=== PATIENT | male | born 1940 | race Caucasian/White ===

== ENCOUNTER 2024-09-03 18:46 | Inpatient (IN) | payer MEDICARE, SELFPAY ==
[2024-09-03] VITALS (14 sets, daily range): BP systolic 90–132; BP diastolic 56–106; BMI 37.8
[2024-09-03 14:20] LABS: % Basophils 0.2 % (0-2); % Immature Granulocytes 0.4 % (0-0.5); % Lymphocytes 2.9 % (20.5-51.1); % Monocytes 5.1 % (1.7-9.3); % Neutrophils 91.4 % (42.2-75.2); Absolute Immature Granulocytes 0.1 10^3/uL (0-0.05); Absolute Lymphocytes 0.4 10^3/uL (1.2-3.4); Absolute Monocytes 0.6 10^3/uL (0.1-0.6); Absolute Neutrophils 11.2 10^3/uL (1.4-6.5); Hematocrit 40.1 % (39.0-52.0); Hemoglobin 13.1 g/dL (13.0-18.0); Mean Corp Hgb Conc. 32.7 g/dL (33.0-37.0); Mean Corpuscular Hgb 32.8 pg (27.0-31.0); Mean Corpuscular Volume 100.5 fL (80.0-94.0); Mean Platelet Volume 9.6 fL (7.4-10.4); Nucleated Red Blood Cells % 0 % (-); Platelet Count 231 10^3/uL (130-400); Red Blood Cell Count 3.99 10^6/uL (4.70-6.10); Red Cell Dist. Width 17.8 % (11.5-14.5); White Blood Cell Count 12.3 10^3/uL (4.8-10.8)
[2024-09-03 14:28] LABS: ALT (SGPT) 29 U/L (0-50); AST (SGOT) 49 U/L (17-59); Albumin 3.7 g/dl (3.5-5.0); Alkaline Phosphatase 161 U/L (38-126); Blood Urea Nitrogen 30 mg/dl (9-20); Calcium 8.2 mg/dl (8.4-10.2); Carbon Dioxide 31 mmol/L (22-30); Chloride 97 mmol/L (98-107); Creatine Phosphokinase 224 U/L (55-170); Estimated Creatinine Clearance 49 ml/min; Glucose 128 mg/dl (70-99); Potassium 4.8 mmol/L (3.5-5.1); Sodium 137 mmol/L (135-145); Total Bilirubin 3.5 mg/dl (0.2-1.3); Total Protein 6.3 g/dl (6.3-8.2); eGFR 49.56
[2024-09-03 14:37] LABS: NT-proBNP 2810 pg/ml
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
[2024-09-03] MEDS: DUONEB 3 ML INH (16:29)
[2024-09-03] MEDS: LASIX 40 MG IV (16:31)
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
[2024-09-03 17:33] LABS: Lactic Acid 1.5 mmol/L (0.7-2.0)
[2024-09-03 17:50] LABS: COVID-19 Antigen Negative (Negative)
[2024-09-03 18:35] LABS: Urine Albumin Negative (Neg - Trace); Urine Bilirubin Negative (Negative); Urine Character Clear (Clear); Urine Color Yellow; Urine Glucose Negative (Negative); Urine Ketone Negative (Negative); Urine Leukocyte Negative (Negative); Urine Nitrite Negative (Negative); Urine Occult Blood 3+ (Negative); Urine Specific Gravity 1.015 (<1.030); Urine Urobilinogen Negative (Neg - 1+)
[2024-09-03 19:12] LABS: Procalcitonin 0.08 ng/ml (0.0-0.25)
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
[2024-09-03] MEDS: ZOSYN 50 IV (19:40)
[2024-09-03] MEDS: ADACEL 0.5 ML IM (20:00)
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
[2024-09-03 20:26] LABS: Urine Red Blood Cell 70-80 /HPF (0-2); Urine White Cell 0-2 /HPF (0-5)
[2024-09-03] MEDS: TYLENOL 650 MG PO (22:31)
[2024-09-03] MEDS: ZOLOFT 150 MG PO (22:41)
[2024-09-03] MEDS: HEPARIN 5000 UNITS SC (22:43)
[2024-09-04] VITALS (17 sets, daily range): BP systolic 83–126; BP diastolic 49–83; BMI 36.3
[2024-09-04] MEDS: ROXICODONE 5 MG PO ×4 (00:57→20:05)
[2024-09-04] MEDS: ZOSYN 50 IV ×4 (02:08→20:06)
[2024-09-04 05:22] LABS: % Basophils 0.4 % (0-2); % Eosinophils 0.8 % (0-6); % Immature Granulocytes 0.4 % (0-0.5); % Lymphocytes 6.1 % (20.5-51.1); % Monocytes 12.2 % (1.7-9.3); % Neutrophils 80.1 % (42.2-75.2); Absolute Eosinophils 0.1 10^3/uL (0-0.7); Absolute Lymphocytes 0.5 10^3/uL (1.2-3.4); Absolute Neutrophils 6.7 10^3/uL (1.4-6.5); Hematocrit 34.7 % (39.0-52.0); Hemoglobin 11.1 g/dL (13.0-18.0); Mean Corpuscular Hgb 32.2 pg (27.0-31.0); Mean Corpuscular Volume 100.6 fL (80.0-94.0); Mean Platelet Volume 9.5 fL (7.4-10.4); Nucleated Red Blood Cells % 0 % (-); Platelet Count 212 10^3/uL (130-400); Red Blood Cell Count 3.45 10^6/uL (4.70-6.10); White Blood Cell Count 8.4 10^3/uL (4.8-10.8)
[2024-09-04 05:39] LABS: ALT (SGPT) 25 U/L (0-50); AST (SGOT) 46 U/L (17-59); Albumin 2.8 g/dl (3.5-5.0); Alkaline Phosphatase 123 U/L (38-126); Blood Urea Nitrogen 29 mg/dl (9-20); Calcium 7.8 mg/dl (8.4-10.2); Carbon Dioxide 28 mmol/L (22-30); Chloride 97 mmol/L (98-107); Estimated Creatinine Clearance 53 ml/min; Glucose 100 mg/dl (70-99); HDL Cholesterol 13 mg/dl; LDL Cholesterol, Calculated 31 mg/dl; Magnesium 1.8 mg/dl (1.6-2.3); Potassium 3.9 mmol/L (3.5-5.1); Sodium 135 mmol/L (135-145); Total Bilirubin 3.2 mg/dl (0.2-1.3); Total Cholesterol 59 mg/dl (50-199); Total Protein 5.1 g/dl (6.3-8.2); Triglyceride 78 mg/dl (10-149); Very Low Density Lipoprotein 15 mg/dl (0-30); eGFR 54.17
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
[2024-09-04] MEDS: HEPARIN 5000 UNITS SC (09:49)
[2024-09-04] MEDS: LASIX 40 MG IV (09:50)
[2024-09-04] MEDS: ASPIR LOW (ENTERIC COATED) 81 MG PO (09:50)
[2024-09-04] MEDS: THERAGRAN PO (13:16)
--- NOTE | 2024-09-04 15:23 | PTOTSP ---
SPEECH THERAPY SWALLOW EVALUATION:
Patient exhibits clinical signs of oropharyngeal dysphagia, likely chronic related to COPD and acutely exacerbated by sepsis and acute CHF. Patient is at high risk for aspiration and related complications due to tenuous respiratory/pulmonary status
and impulsivity. Recommend IDDSI Level 5 Minced and Moist diet, thin liquids via single sips only. Medications whole in puree. Aspiration/COPD precautions including: Upright positioning; Small single sips/bites; Slow rate of intake; Take breaks
during meals; Do not eat when short of breath; Monitor for signs of aspiration; D/c oral diet if any decline in mental/respiratory status. Consider VSE if concern for aspiration. ST to follow, determine indication for VSE as appropriate, assess diet
tolerance and modify as appropriate, and provide continued education regarding aspiration risks and precautions.
RECOMMEND:
1) IDDSI Level 5 Minced and Moist diet, thin liquids via single sips only
2) Medications whole in puree
3) Aspiration/COPD precautions including: Upright positioning; Small single sips/bites; Slow rate of intake; Take breaks during meals; Do not eat when short of breath; Monitor for signs of aspiration; D/c oral diet if any decline in
mental/respiratory status
4) Consider VSE if concern for aspiration
5) Oral care 3x/day to reduce risk for nosocomial infection
6) ST to follow
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
[2024-09-04] MEDS: LIPITOR 20 MG PO (19:12)
[2024-09-04] MEDS: TOPROL XL 25 MG PO (19:12)
[2024-09-04] MEDS: ZOLOFT 150 MG PO (20:05)
[2024-09-04] MEDS: ELIQUIS 5 MG PO (20:05)
[2024-09-05] MEDS: ZOSYN 50 IV ×4 (01:23→20:32)
[2024-09-05 03:28] VITALS: BP 114/81
[2024-09-05] MEDS: DUONEB 3 ML INH (04:23)
[2024-09-05 05:54] VITALS: BMI 36.4
[2024-09-05] MEDS: ROXICODONE 5 MG PO ×3 (06:25→22:40)
[2024-09-05 07:00] VITALS: BP 116/64
[2024-09-05 07:54] LABS: % Basophils 0.3 % (0-2); % Eosinophils 1.6 % (0-6); % Immature Granulocytes 0.3 % (0-0.5); % Lymphocytes 4.5 % (20.5-51.1); % Monocytes 11.3 % (1.7-9.3); Absolute Eosinophils 0.2 10^3/uL (0-0.7); Absolute Lymphocytes 0.4 10^3/uL (1.2-3.4); Absolute Monocytes 1.1 10^3/uL (0.1-0.6); Absolute Neutrophils 7.8 10^3/uL (1.4-6.5); Hematocrit 36.1 % (39.0-52.0); Hemoglobin 11.3 g/dL (13.0-18.0); Mean Corp Hgb Conc. 31.3 g/dL (33.0-37.0); Mean Corpuscular Hgb 31.7 pg (27.0-31.0); Mean Corpuscular Volume 101.4 fL (80.0-94.0); Nucleated Red Blood Cells % 0 % (-); Platelet Count 211 10^3/uL (130-400); Red Blood Cell Count 3.56 10^6/uL (4.70-6.10); Red Cell Dist. Width 17.8 % (11.5-14.5); White Blood Cell Count 9.5 10^3/uL (4.8-10.8)
[2024-09-05 08:07] LABS: ALT (SGPT) 29 U/L (0-50); AST (SGOT) 44 U/L (17-59); Albumin 3.3 g/dl (3.5-5.0); Alkaline Phosphatase 138 U/L (38-126); Blood Urea Nitrogen 33 mg/dl (9-20); Calcium 8.1 mg/dl (8.4-10.2); Carbon Dioxide 34 mmol/L (22-30); Chloride 93 mmol/L (98-107); Estimated Creatinine Clearance 40 ml/min; Glucose 135 mg/dl (70-99); Magnesium 1.9 mg/dl (1.6-2.3); Potassium 3.8 mmol/L (3.5-5.1); Sodium 135 mmol/L (135-145); Total Bilirubin 2.6 mg/dl (0.2-1.3); Total Protein 5.9 g/dl (6.3-8.2); eGFR 39.26
[2024-09-05] MEDS: ASPIR LOW (ENTERIC COATED) 81 MG PO (10:09)
[2024-09-05] MEDS: TOPROL XL 25 MG PO (10:09)
[2024-09-05] MEDS: THERAGRAN 1 TABLET PO (10:09)
[2024-09-05] MEDS: ELIQUIS 5 MG PO ×2 (10:09→20:31)
[2024-09-05 11:00] VITALS: BP 102/68
[2024-09-05] MEDS: LASIX 40 MG IV (11:43)
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
[2024-09-05 15:00] VITALS: BP 91/57
[2024-09-05] MEDS: DESENEX/MITRAZOL/ZEASORB 1 APPLIC TOPICAL ×2 (15:58→20:32)
[2024-09-05] MEDS: LIPITOR 20 MG PO (18:40)
[2024-09-05 19:30] VITALS: BP 112/73
[2024-09-05] MEDS: ZOLOFT 150 MG PO (22:37)
[2024-09-05 23:00] VITALS: BP 95/58
[2024-09-06] MEDS: ZOSYN 50 IV ×4 (02:05→23:25)
[2024-09-06 03:00] VITALS: BP 107/71
[2024-09-06 06:00] VITALS: BMI 36.4
[2024-09-06 07:16] VITALS: BP 89/56
[2024-09-06 07:46] LABS: % Basophils 0.3 % (0-2); % Eosinophils 2.2 % (0-6); % Immature Granulocytes 0.6 % (0-0.5); % Lymphocytes 7.2 % (20.5-51.1); % Monocytes 12.7 % (1.7-9.3); Absolute Eosinophils 0.2 10^3/uL (0-0.7); Absolute Immature Granulocytes 0.1 10^3/uL (0-0.05); Absolute Lymphocytes 0.7 10^3/uL (1.2-3.4); Absolute Monocytes 1.2 10^3/uL (0.1-0.6); Absolute Neutrophils 7.4 10^3/uL (1.4-6.5); Hematocrit 35.4 % (39.0-52.0); Hemoglobin 11.2 g/dL (13.0-18.0); Mean Corp Hgb Conc. 31.6 g/dL (33.0-37.0); Mean Corpuscular Hgb 31.9 pg (27.0-31.0); Mean Corpuscular Volume 100.9 fL (80.0-94.0); Mean Platelet Volume 9.5 fL (7.4-10.4); Nucleated Red Blood Cells % 0 % (-); Platelet Count 210 10^3/uL (130-400); Red Blood Cell Count 3.51 10^6/uL (4.70-6.10); Red Cell Dist. Width 18.1 % (11.5-14.5); White Blood Cell Count 9.6 10^3/uL (4.8-10.8)
[2024-09-06 08:30] LABS: ALT (SGPT) 69 U/L (0-50); AST (SGOT) 109 U/L (17-59); Albumin 3.2 g/dl (3.5-5.0); Alkaline Phosphatase 116 U/L (38-126); Blood Urea Nitrogen 43 mg/dl (9-20); Calcium 7.9 mg/dl (8.4-10.2); Carbon Dioxide 31 mmol/L (22-30); Chloride 92 mmol/L (98-107); Estimated Creatinine Clearance 24 ml/min; Glucose 127 mg/dl (70-99); Magnesium 2.1 mg/dl (1.6-2.3); Potassium 4.3 mmol/L (3.5-5.1); Sodium 133 mmol/L (135-145); Total Bilirubin 3.4 mg/dl (0.2-1.3); Total Protein 5.6 g/dl (6.3-8.2); eGFR 21.57
[2024-09-06] MEDS: DESENEX/MITRAZOL/ZEASORB 1 APPLIC TOPICAL ×2 (09:23→21:35)
[2024-09-06] MEDS: THERAGRAN 1 TABLET PO (09:23)
[2024-09-06] MEDS: ASPIR LOW (ENTERIC COATED) 81 MG PO (09:23)
[2024-09-06] MEDS: ELIQUIS 5 MG PO (09:24)
[2024-09-06] MEDS: ROXICODONE 5 MG PO (09:35)
[2024-09-06] MEDS: TOPROL XL PO (10:10)
[2024-09-06] MEDS: LASIX IV (10:10)
--- NOTE | 2024-09-06 10:16 | RR ---
A Rapid Response was called on this patient, please see Rapid Response form.
Patient with bradycardic a-flutter 30 bpm on iv rn. Patient with labored respirations, but unresponsive to sternal rub. Rapid response called.
[2024-09-06 10:20] LABS: Glucose - Point of Care 159 mg/dl (70-99)
--- NOTE | 2024-09-06 10:38 | CM ---
Patient seen at bedside with physician, rapid response in process. CM spoke with patient family, POA in hallway and per POA patient would not want intubation. Physician spoke with patient family; Justa here. Assessment completed, Patient family
from [facility]. and here visiting. Patient lives alone in a one story home with one step down to living room. Patient has been declining but still driving and independent. No DME and PCP is Dr. Sal Kolb, pharmacy is [facility] in [place]. CM will continue
to follow for discharge planning needs.
Plan; DNR, comfort care
[2024-09-06] MEDS: MORPHINE SULFATE 1 MG IV ×3 (10:45→23:38)
--- NOTE | 2024-09-06 11:04 | W.PN.UPDATE ---
Update Note
Progress Note Update
Rapid response for abrupt change in mentation with abrupt onset bradycardia, patient became agonal, difficult to obtain blood pressure, family at bedside, they request no intervention and patient was a DNR. Conservative strategy consistent with
patient's wishes.
Patient currently agonal, suspect pulmonary embolus as possible etiology, other hemodynamic catastrophes conceivable, comfort care is appropriate, expect patient will in the near term. Discussed with family, condolences offered.
--- NOTE | 2024-09-06 11:52 | W.PN.UPDATE ---
Update Note
Progress Note Update
Remarkably, patient now awake heart rate around 100, still looks ashen but better blood pressure, denies complaints, says 'I am better'. Metoprolol, will follow, diagnosis uncertain, family still at bedside. Still will not intervene further
reassess if he remains stable.
[2024-09-06] MEDS: ATIVAN 1 MG IV (13:01)
[2024-09-06] MEDS: NSS (PRESERVATIVE FREE) 0.5 ML IV (13:02)
[2024-09-06] MEDS: FLUSH (NSS) 2 FLUSH IV (13:02)
--- NOTE | 2024-09-06 13:11 | WOUNDNOTE ---
R PLANTAR MEDIAL FOOT
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
[2024-09-06] MEDS: LIPITOR PO (17:51)
[2024-09-06 19:20] VITALS: BP 102/56
[2024-09-06] MEDS: ZOLOFT 150 MG PO (21:35)
[2024-09-06] MEDS: ELIQUIS 2.5 MG PO (21:35)
[2024-09-06 23:28] VITALS: BP 104/65
[2024-09-07] VITALS (8 sets, daily range): BP systolic 99–141; BP diastolic 64–86; PULSE 103–105; O2SAT 95–96; BMI 36.5
[2024-09-07] MEDS: MORPHINE SULFATE 1 MG IV (02:22)
[2024-09-07] MEDS: ZOSYN 50 IV ×3 (05:31→17:07)
[2024-09-07 07:04] LABS: % Basophils 0.4 % (0-2); % Eosinophils 2.8 % (0-6); % Immature Granulocytes 0.7 % (0-0.5); % Monocytes 11.7 % (1.7-9.3); % Neutrophils 77.4 % (42.2-75.2); Absolute Eosinophils 0.3 10^3/uL (0-0.7); Absolute Immature Granulocytes 0.1 10^3/uL (0-0.05); Absolute Lymphocytes 0.6 10^3/uL (1.2-3.4); Absolute Neutrophils 6.9 10^3/uL (1.4-6.5); Hematocrit 36.6 % (39.0-52.0); Hemoglobin 11.5 g/dL (13.0-18.0); Mean Corp Hgb Conc. 31.4 g/dL (33.0-37.0); Mean Corpuscular Volume 101.9 fL (80.0-94.0); Mean Platelet Volume 9.8 fL (7.4-10.4); Nucleated Red Blood Cells % 0 % (-); Platelet Count 228 10^3/uL (130-400); Red Blood Cell Count 3.59 10^6/uL (4.70-6.10); Red Cell Dist. Width 18.3 % (11.5-14.5); White Blood Cell Count 8.9 10^3/uL (4.8-10.8)
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
[2024-09-07 08:18] LABS: ALT (SGPT) 140 U/L (0-50); AST (SGOT) 186 U/L (17-59); Albumin 3.4 g/dl (3.5-5.0); Alkaline Phosphatase 122 U/L (38-126); Blood Urea Nitrogen 51 mg/dl (9-20); Calcium 8.2 mg/dl (8.4-10.2); Carbon Dioxide 31 mmol/L (22-30); Chloride 91 mmol/L (98-107); Estimated Creatinine Clearance 17 ml/min; Glucose 121 mg/dl (70-99); Potassium 4.3 mmol/L (3.5-5.1); Sodium 134 mmol/L (135-145); Total Bilirubin 2.9 mg/dl (0.2-1.3); eGFR 14.49
[2024-09-07] MEDS: NSS 1000 IV (10:20)
[2024-09-07] MEDS: ELIQUIS 2.5 MG PO ×2 (10:21→21:15)
[2024-09-07] MEDS: ASPIR LOW (ENTERIC COATED) 81 MG PO (10:21)
[2024-09-07] MEDS: THERAGRAN 1 TABLET PO (10:21)
[2024-09-07] MEDS: DESENEX/MITRAZOL/ZEASORB 1 APPLIC TOPICAL ×2 (10:22→21:14)
--- NOTE | 2024-09-07 15:05 | CM ---
Patient seen at bedside, alert and asking questions. CM will reach out to patient family and request copy of POA documents to place on chart. Patient may benefit from PT/OT to confirm discharge planning needs. CM will continue to follow for
discharge planning needs.
Plan; SNF
[2024-09-07] MEDS: DECADRON 4 MG IV ×2 (15:25→21:15)
--- NOTE | 2024-09-07 15:36 | PTOTSP ---
ST Follow-Up
Pt currently presents with clinical signs of mild to moderate oral dysphagia. Pt is at an elevated risk for choking/aspiration due to increased respiratory demands, dependence on supplemental O2, and reduced breathing/swallowing coordination.
Recommendations:
- Upgrade diet to SOFT BITE SIZED SOLIDS and continue with THIN LIQUIDS; meds as tolerated.
- Aspiration precautions: Fully awake, alert, and upright for all PO intake; small bites/sips and slow intake; take breaks to catch breath between bites/sips.
- DATA COORDINATOR to f/u re: diet tolerance.
--- NOTE | 2024-09-07 16:23 | WOUNDNOTE ---
[facility] RN NOTE: Added Silvadene to current wound care to start tomorrow. Plan is for SNF upon discharge per CM note. Will confirm orders with hospitalist and notify nursing.
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
[2024-09-07] MEDS: LIPITOR 20 MG PO (17:06)
[2024-09-07] MEDS: DUONEB 3 ML INH (17:39)
[2024-09-07] MEDS: NSS IV (20:08)
[2024-09-07] MEDS: ZOLOFT 150 MG PO (21:15)
[2024-09-08] MEDS: ZOSYN 50 IV ×5 (01:35→23:33)
[2024-09-08] MEDS: NSS 1000 IV ×2 (03:13→15:12)
[2024-09-08 03:20] VITALS: BP 117/80
[2024-09-08] MEDS: DECADRON 4 MG IV ×3 (05:44→21:02)
[2024-09-08 06:00] VITALS: BMI 36.9
[2024-09-08 06:47] VITALS: BP 117/82
[2024-09-08 07:37] LABS: % Basophils 0.1 % (0-2); % Immature Granulocytes 0.8 % (0-0.5); % Lymphocytes 3.8 % (20.5-51.1); % Monocytes 2.1 % (1.7-9.3); % Neutrophils 93.2 % (42.2-75.2); Absolute Immature Granulocytes 0.1 10^3/uL (0-0.05); Absolute Lymphocytes 0.3 10^3/uL (1.2-3.4); Absolute Monocytes 0.2 10^3/uL (0.1-0.6); Absolute Neutrophils 6.6 10^3/uL (1.4-6.5); Hematocrit 37.2 % (39.0-52.0); Hemoglobin 12.1 g/dL (13.0-18.0); Mean Corp Hgb Conc. 32.5 g/dL (33.0-37.0); Mean Corpuscular Hgb 32.7 pg (27.0-31.0); Mean Corpuscular Volume 100.5 fL (80.0-94.0); Mean Platelet Volume 9.8 fL (7.4-10.4); Nucleated Red Blood Cells % 0 % (-); Platelet Count 238 10^3/uL (130-400); Red Cell Dist. Width 18.3 % (11.5-14.5); White Blood Cell Count 7.1 10^3/uL (4.8-10.8)
[2024-09-08 08:15] LABS: ALT (SGPT) 141 U/L (0-50); AST (SGOT) 136 U/L (17-59); Albumin 3.5 g/dl (3.5-5.0); Alkaline Phosphatase 121 U/L (38-126); Blood Urea Nitrogen 63 mg/dl (9-20); Calcium 8.1 mg/dl (8.4-10.2); Carbon Dioxide 26 mmol/L (22-30); Chloride 91 mmol/L (98-107); Estimated Creatinine Clearance 16 ml/min; Glucose 169 mg/dl (70-99); Potassium 4.9 mmol/L (3.5-5.1); Sodium 133 mmol/L (135-145); Total Bilirubin 2.8 mg/dl (0.2-1.3); Total Protein 6.3 g/dl (6.3-8.2); eGFR 12.54
[2024-09-08] MEDS: SILVADENE 1 APPLIC TOPICAL (09:55)
[2024-09-08] MEDS: THERAGRAN 1 TABLET PO (09:56)
[2024-09-08] MEDS: DESENEX/MITRAZOL/ZEASORB 1 APPLIC TOPICAL ×2 (09:56→21:01)
[2024-09-08] MEDS: ELIQUIS 2.5 MG PO ×2 (09:56→21:01)
[2024-09-08] MEDS: ASPIR LOW (ENTERIC COATED) 81 MG PO (09:56)
[2024-09-08 11:00] VITALS: BP 123/88
[2024-09-08] MEDS: TOPROL XL 12.5 MG PO (12:48)
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
[2024-09-08 15:00] VITALS: BP 106/71
--- NOTE | 2024-09-08 15:20 | CM ---
Patient seen at bedside with physicians and called to patient family. Patient verbal and asking about patient feet and pain. Patient contact Fern[facility] and update provided and plan is for call back with physician to provide supports. CM provided
information about SNF options and options. CM will continue to follow for discharge planning needs.
Plan; SNF
[2024-09-08] MEDS: LIPITOR 20 MG PO (17:43)
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
--- NOTE | 2024-09-08 18:27 | W.PN.UPDATE ---
Update Note
Progress Note Update
Patient's family wanted to talk about hospice. Called the patient's family and discussed about the patient's medical condition and goals of care, hospice, comfort care measures in case if they opt for hospice. Also addressed all their
concerns/questions.. Family said that they need some time to arrive at a decision and would touch base with us on Friday with the further plan.
We had a discussion for about 25 minutes.
[2024-09-08 19:25] VITALS: BP 105/69
[2024-09-08] MEDS: ZOLOFT 150 MG PO (21:01)
[2024-09-08 23:15] VITALS: BP 114/74
[2024-09-09 03:00] VITALS: BP 136/95
[2024-09-09] MEDS: ZOSYN 50 IV ×3 (05:02→17:27)
[2024-09-09] MEDS: DECADRON 4 MG IV ×3 (05:02→21:46)
[2024-09-09 05:49] VITALS: BMI 37.3
[2024-09-09 07:00] VITALS: BP 129/90
[2024-09-09 07:10] LABS: % Basophils 0.1 % (0-2); % Immature Granulocytes 0.5 % (0-0.5); % Neutrophils 91.4 % (42.2-75.2); Absolute Lymphocytes 0.3 10^3/uL (1.2-3.4); Absolute Monocytes 0.3 10^3/uL (0.1-0.6); Absolute Neutrophils 7.1 10^3/uL (1.4-6.5); Hematocrit 35.5 % (39.0-52.0); Hemoglobin 11.4 g/dL (13.0-18.0); Mean Corp Hgb Conc. 32.1 g/dL (33.0-37.0); Mean Corpuscular Hgb 32.3 pg (27.0-31.0); Mean Corpuscular Volume 100.6 fL (80.0-94.0); Mean Platelet Volume 9.8 fL (7.4-10.4); Nucleated Red Blood Cells % 0 % (-); Platelet Count 235 10^3/uL (130-400); Red Blood Cell Count 3.53 10^6/uL (4.70-6.10); Red Cell Dist. Width 18.3 % (11.5-14.5); White Blood Cell Count 7.8 10^3/uL (4.8-10.8)
[2024-09-09 08:01] LABS: Blood Urea Nitrogen 74 mg/dl (9-20); Calcium 7.7 mg/dl (8.4-10.2); Carbon Dioxide 27 mmol/L (22-30); Chloride 93 mmol/L (98-107); Estimated Creatinine Clearance 14 ml/min; Glucose 203 mg/dl (70-99); Potassium 4.9 mmol/L (3.5-5.1); Sodium 134 mmol/L (135-145); eGFR 11.02
[2024-09-09] MEDS: ELIQUIS 2.5 MG PO ×2 (08:43→21:46)
[2024-09-09] MEDS: THERAGRAN 1 TABLET PO (08:43)
[2024-09-09] MEDS: DESENEX/MITRAZOL/ZEASORB 1 APPLIC TOPICAL ×2 (08:43→21:46)
[2024-09-09] MEDS: TOPROL XL 12.5 MG PO (08:43)
[2024-09-09] MEDS: SILVADENE 1 APPLIC TOPICAL (08:43)
[2024-09-09] MEDS: ASPIR LOW (ENTERIC COATED) 81 MG PO (08:43)
[2024-09-09] MEDS: DUONEB 3 ML INH (08:51)
[2024-09-09 11:00] VITALS: BP 120/80
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
--- NOTE | 2024-09-09 14:24 | CM ---
flight engineer manager reviewed patient's chart and patient's cousins are interested in discussing hospice, Per Fernanda, her Mother Poppy and cousin to patient is BETSY she will provide POA paperwork tomorrow. Per Fernanda they are traveling from [place]
tomorrow and they are not sure what time they will arrive at and are requesting a meeting with hospice on Friday if possible. Another cousin Stefanie who is a case manager specialist will be arriving also to assist with discharge planning.
Plan; Family are hoping for a hospice meeting on Friday, they are traveling to [facility] from [place] tomorrow.
[2024-09-09 15:00] VITALS: BP 107/81
[2024-09-09] MEDS: LIPITOR 20 MG PO (17:27)
[2024-09-09 19:52] VITALS: BP 109/66
[2024-09-09] MEDS: ZOLOFT 150 MG PO (21:46)
[2024-09-09 23:41] VITALS: BP 130/94
[2024-09-10] MEDS: ZOSYN 50 IV ×4 (01:00→17:08)
[2024-09-10] MEDS: ROXICODONE 5 MG PO (02:06)
[2024-09-10 03:08] LABS: Protein/creatinine Ratio 0.9; Urine Protein 90 mg/dl; Urine Sodium 23 mmol/L (30-90)
[2024-09-10 03:30] VITALS: BP 128/83
[2024-09-10] MEDS: DECADRON 4 MG IV ×3 (05:32→21:08)
[2024-09-10 06:00] VITALS: BMI 37.5
[2024-09-10 07:00] VITALS: BP 117/84
[2024-09-10 07:57] LABS: % Basophils 0.1 % (0-2); % Immature Granulocytes 0.4 % (0-0.5); % Lymphocytes 3.1 % (20.5-51.1); % Monocytes 4.5 % (1.7-9.3); % Neutrophils 91.9 % (42.2-75.2); Absolute Lymphocytes 0.3 10^3/uL (1.2-3.4); Absolute Monocytes 0.4 10^3/uL (0.1-0.6); Absolute Neutrophils 8.3 10^3/uL (1.4-6.5); Hematocrit 38.5 % (39.0-52.0); Hemoglobin 12.6 g/dL (13.0-18.0); Mean Corp Hgb Conc. 32.7 g/dL (33.0-37.0); Mean Corpuscular Hgb 32.7 pg (27.0-31.0); Mean Platelet Volume 9.7 fL (7.4-10.4); Nucleated Red Blood Cells % 0.3 % (-); Platelet Count 256 10^3/uL (130-400); Red Blood Cell Count 3.85 10^6/uL (4.70-6.10); Red Cell Dist. Width 18.5 % (11.5-14.5); White Blood Cell Count 9.1 10^3/uL (4.8-10.8)
[2024-09-10] MEDS: THERAGRAN 1 TABLET PO (07:57)
[2024-09-10] MEDS: TOPROL XL 12.5 MG PO (07:57)
[2024-09-10] MEDS: ELIQUIS 2.5 MG PO ×2 (07:57→20:59)
[2024-09-10] MEDS: DESENEX/MITRAZOL/ZEASORB 1 APPLIC TOPICAL ×2 (07:57→20:59)
[2024-09-10] MEDS: SILVADENE 1 APPLIC TOPICAL (07:57)
[2024-09-10 08:29] LABS: Blood Urea Nitrogen 88 mg/dl (9-20); Calcium 8.2 mg/dl (8.4-10.2); Carbon Dioxide 28 mmol/L (22-30); Chloride 91 mmol/L (98-107); Estimated Creatinine Clearance 13 ml/min; Glucose 238 mg/dl (70-99); Magnesium 2.8 mg/dl (1.6-2.3); Potassium 5.1 mmol/L (3.5-5.1); Sodium 136 mmol/L (135-145); eGFR 9.81
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
--- NOTE | 2024-09-10 10:31 | CM ---
Addendum entered by Kathy Ortiz 09/10/24 17:31:
Family meeting held discussed Hospice options. family to continue to discuss options and communicate with CM tomorrow.
Original Note:
CM called to patient family they will be here later today.
[2024-09-10 11:00] VITALS: BP 119/76
--- NOTE | 2024-09-10 13:42 | W.PN.NEPH.PH ---
Today's Communication / Plan
-
Continue supportive care no acute dialysis needed at this time. considered diuretics in the next 24 hours
Assessment/Plan
-
Impression:
DEVON
Decompensated acute congestive heart failure
History of interstitial lung disease
Left 11th rib fracture following acute trauma to bilateral lower extremities
New onset atrial flutter
History of mixed hyperlipidemia
History of psoriasis
History of diabetes
History cataract
History depression
History of low SaO2
History of presumed COPD
Hypotension
Diffuse body edema including scrotal edema
3.4 cm abdominal aortic aneurysm
3.8 cm right common iliac artery aneurysm
Obesity
Plan:
DEVON:
-Likely prerenal he mediated due to hypotensive episode on 07/07/2024 and possibly due to initial contrast injury from CT on 09/03/2024
-He may now have a component of ischemic ATN
-check PVR bladder scan if greater thenn [address] granados (patient is incontinent)
-
-Urinalysis NOT consistent with GN process, no albumin
-Currently hemodynamically stable
-Zosyn is renally dosed for GFR less than 20
Creatinine and continues to increase as though no acute need for dialysis at this time
hopefully will you will see a plateau in his renal function shortly.
Current weight is 115 kg. Weights have been increasing although this is the weight he was when he arrived to the emergency room.
Will monitor for the next 24 hours likely reinitiate diuretics tomorrow one time dose.
-
-
Date of Service: September 10, 2024
CC / HPI / ROS
-
Chief Complaint:
Acute kidney injury
History of Present Illness:
acute kidney injury status post bradycardia and hypotension.
worsening renal function though hemodynamically stable
Review of Systems: .
No chest pain shortness of breath nausea vomiting
Labs
-
Labs:
WBC 9.1 10^3/uL (4.8-10.8) 09/10/24 07:11
RBC 3.85 10^6/uL (4.70-6.10) L 09/10/24 07:11
Hgb 12.6 g/dL (13.0-18.0) L 09/10/24 07:11
Hct 38.5 % (39.0-52.0) L 09/10/24 07:11
Plt Count 256 10^3/uL (130-400) 09/10/24 07:11
Sodium 136 mmol/L (135-145) 09/10/24 07:11
Potassium 5.1 mmol/L (3.5-5.1) 09/10/24 07:11
Chloride 91 mmol/L (98-107) L 09/10/24 07:11
Carbon Dioxide 28 mmol/L (22-30) 09/10/24 07:11
BUN 88 mg/dl (9-20) H 09/10/24 07:11
Creatinine 5.4 mg/dL (0.7-1.3) H* 09/10/24 07:11
eGFR 9.81 09/10/24 07:11
Glucose 238 mg/dl (70-99) H 09/10/24 07:11
Calcium 8.2 mg/dl (8.4-10.2) L 09/10/24 07:11
Tiv-I-Jtrdfgngzar Pept 2810 pg/ml 09/03/24 14:10
Albumin 3.5 g/dl (3.5-5.0) 09/08/24 06:27
Physical Exam
-
Vital Signs:
Vital Signs
Temp Pulse Resp BP Pulse Ox
97.7 F 90 20 119/76 97
09/10/24 11:00 09/10/24 11:00 09/10/24 11:00 09/10/24 11:00 09/10/24 11:00
Respiratory:: Bilateral: CTA
Lung Excursion:: Normal
Abdomen:: Soft
Bowel Sounds:: Normal
Extremity Edema:: +1: Bilateral:
--- NOTE | 2024-09-10 13:56 | PTOTSP ---
Videofluoroscopic Swallow Study
Summary: Patient presents with mild oral/pharyngeal dysphagia. No aspiration occurred. Please see patient care note for details.
Recommend:
1. IDDSI Level 5 Minced and Moist, thin liquids per patient preference
2. Medications whole in puree
3. Aspiration precautions: Upright positioning, small single sips/bites, slow rate, breaks for breathing, supervision during meals
4. Oral care 3/day
5. Brief dysphagia f/u for instruction in compensations pending GOC. (Pt/family meeting with hospice.)
[2024-09-10 15:00] VITALS: BP 133/90
[2024-09-10] MEDS: LIPITOR 20 MG PO (17:08)
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
[2024-09-10 19:43] VITALS: BP 121/76
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
[2024-09-10] MEDS: TYLENOL 650 MG PO (20:59)
[2024-09-10] MEDS: ZOLOFT 150 MG PO (20:59)
[2024-09-10 23:50] VITALS: BP 133/86
[2024-09-11] VITALS (7 sets, daily range): BP systolic 93–133; BP diastolic 60–97; BMI 37.5
[2024-09-11] MEDS: ZOSYN 50 IV ×5 (00:04→23:44)
[2024-09-11] MEDS: DECADRON 4 MG IV ×3 (05:59→22:31)
[2024-09-11 09:00] LABS: Hematocrit 38.3 % (39.0-52.0); Hemoglobin 12.6 g/dL (13.0-18.0); Mean Corp Hgb Conc. 32.9 g/dL (33.0-37.0); Mean Corpuscular Hgb 32.1 pg (27.0-31.0); Mean Corpuscular Volume 97.5 fL (80.0-94.0); Mean Platelet Volume 9.9 fL (7.4-10.4); Platelet Count 256 10^3/uL (130-400); Red Blood Cell Count 3.93 10^6/uL (4.70-6.10); Red Cell Dist. Width 17.9 % (11.5-14.5); White Blood Cell Count 8.8 10^3/uL (4.8-10.8)
[2024-09-11 09:34] LABS: Blood Urea Nitrogen 95 mg/dl (9-20); Calcium 7.8 mg/dl (8.4-10.2); Carbon Dioxide 26 mmol/L (22-30); Chloride 93 mmol/L (98-107); Estimated Creatinine Clearance 13 ml/min; Glucose 252 mg/dl (70-99); Potassium 5.3 mmol/L (3.5-5.1); Sodium 134 mmol/L (135-145); eGFR 9.59
[2024-09-11] MEDS: DESENEX/MITRAZOL/ZEASORB 1 APPLIC TOPICAL ×2 (10:17→22:31)
[2024-09-11] MEDS: ELIQUIS 2.5 MG PO ×2 (10:17→22:30)
[2024-09-11] MEDS: TOPROL XL 12.5 MG PO (10:19)
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
[2024-09-11] MEDS: SILVADENE 1 APPLIC TOPICAL (11:18)
[2024-09-11] MEDS: THERAGRAN 1 TABLET PO (11:19)
[2024-09-11] MEDS: LASIX 60 MG IV (11:34)
--- NOTE | 2024-09-11 12:43 | CM ---
Met with patient neices and reviewed options. Family requested referral to local SNF options first for rehab and then to transition to comfort or hospice as appropriate. CM will send referrals to local SNF options as family requested: [facility]. CM will send referrals via all scripts. CM will continue to follow for discharge planning needs.
Plan; SNF; hospice vs rehab
--- NOTE | 2024-09-11 14:23 | W.PN.NEPH.PH ---
Today's Communication / Plan
-
Lasix restarted
Assessment/Plan
-
Impression:
DEVON
Decompensated acute congestive heart failure
History of interstitial lung disease
Left 11th rib fracture following acute trauma to bilateral lower extremities
New onset atrial flutter
History of mixed hyperlipidemia
History of psoriasis
History of diabetes
History cataract
History depression
History of low SaO2
History of presumed COPD
Hypotension
Diffuse body edema including scrotal edema
3.4 cm abdominal aortic aneurysm
3.8 cm right common iliac artery aneurysm
Obesity
Plan:
DEVON:
-Likely prerenal he mediated due to hypotensive episode on 07/07/2024 and possibly due to initial contrast injury from CT on 09/03/2024
-He may now have a component of ischemic ATN
- decreased urine output
-
-Urinalysis NOT consistent with GN process, no albumin
-Currently hemodynamically stable
-Zosyn is renally dosed for GFR less than 20
Creatinine and continues to increase as though no acute need for dialysis at this time
Lasix restarted.
Potassium mildly elevated the setting of moderate hyperglycemia and acute kidney injury=Ordered a lower potassium diet.
A long discussion with the family about potential for dialysis although with the multiple comorbidities that likely not an option At his advanced late age
will discuss further going forward but I would recommend hospice care if we do go that direction
-
-
Date of Service: September 11, 2024
CC / HPI / ROS
-
Chief Complaint:
Acute kidney injury
History of Present Illness:
acute kidney injury status post bradycardia and hypotension.
worsening renal function though hemodynamically stable
Review of Systems: .
No chest pain shortness of breath nausea vomiting
Labs
-
Labs:
WBC 8.8 10^3/uL (4.8-10.8) 09/11/24 06:50
RBC 3.93 10^6/uL (4.70-6.10) L 09/11/24 06:50
Hgb 12.6 g/dL (13.0-18.0) L 09/11/24 06:50
Hct 38.3 % (39.0-52.0) L 09/11/24 06:50
Plt Count 256 10^3/uL (130-400) 09/11/24 06:50
Sodium 134 mmol/L (135-145) L 09/11/24 06:50
Potassium 5.3 mmol/L (3.5-5.1) H 09/11/24 06:50
Chloride 93 mmol/L (98-107) L 09/11/24 06:50
Carbon Dioxide 26 mmol/L (22-30) 09/11/24 06:50
BUN 95 mg/dl (9-20) H 09/11/24 06:50
Creatinine 5.5 mg/dL (0.7-1.3) H* 09/11/24 06:50
eGFR 9.59 09/11/24 06:50
Glucose 252 mg/dl (70-99) H 09/11/24 06:50
Calcium 7.8 mg/dl (8.4-10.2) L 09/11/24 06:50
Bsn-J-Qkaodcdtrbk Pept 2810 pg/ml 09/03/24 14:10
Albumin 3.5 g/dl (3.5-5.0) 09/08/24 06:27
Physical Exam
-
Vital Signs:
Vital Signs
Temp Pulse Resp BP Pulse Ox
98.0 F 107 24 133/97 94
09/11/24 11:43 09/11/24 11:43 09/11/24 11:43 09/11/24 11:43 09/11/24 11:43
Respiratory:: Bilateral: Coarse
Lung Excursion:: Normal
Abdomen:: Soft
Bowel Sounds:: Normal
Extremity Edema:: +1: Bilateral:
[2024-09-11] MEDS: LIPITOR 20 MG PO (18:18)
[2024-09-11] MEDS: ZOLOFT 150 MG PO (22:31)
[2024-09-12] MEDS: ROBITUSSIN 200 MG PO (02:02)
[2024-09-12] MEDS: DUONEB 3 ML INH (02:09)
[2024-09-12 03:17] VITALS: BP 109/73
[2024-09-12] MEDS: SENOKOT-S 1 TABLET PO (05:55)
[2024-09-12] MEDS: MIRALAX 17 GRAMS PO (05:55)
[2024-09-12] MEDS: DECADRON 4 MG IV ×3 (05:55→21:41)
[2024-09-12] MEDS: ZOSYN 50 IV ×3 (05:55→17:57)
[2024-09-12 06:00] VITALS: BMI 37.3
[2024-09-12 07:30] VITALS: BP 112/67
[2024-09-12 08:14] LABS: Hematocrit 38.8 % (39.0-52.0); Hemoglobin 12.6 g/dL (13.0-18.0); Mean Corp Hgb Conc. 32.5 g/dL (33.0-37.0); Mean Corpuscular Volume 98.5 fL (80.0-94.0); Mean Platelet Volume 9.8 fL (7.4-10.4); Platelet Count 251 10^3/uL (130-400); Red Blood Cell Count 3.94 10^6/uL (4.70-6.10); Red Cell Dist. Width 17.7 % (11.5-14.5); White Blood Cell Count 8.9 10^3/uL (4.8-10.8)
[2024-09-12 08:26] LABS: NT-proBNP 12500 pg/ml
[2024-09-12 08:47] LABS: ALT (SGPT) 78 U/L (0-50); AST (SGOT) 35 U/L (17-59); Albumin 3.6 g/dl (3.5-5.0); Alkaline Phosphatase 113 U/L (38-126); Blood Urea Nitrogen 101 mg/dl (9-20); Calcium 7.9 mg/dl (8.4-10.2); Carbon Dioxide 27 mmol/L (22-30); Chloride 93 mmol/L (98-107); Estimated Creatinine Clearance 12 ml/min; Glucose 265 mg/dl (70-99); Magnesium 2.8 mg/dl (1.6-2.3); Potassium 4.9 mmol/L (3.5-5.1); Sodium 135 mmol/L (135-145); Total Bilirubin 2.3 mg/dl (0.2-1.3); Total Protein 6.2 g/dl (6.3-8.2); eGFR 9.59
[2024-09-12] MEDS: TOPROL XL 12.5 MG PO (10:02)
[2024-09-12] MEDS: ELIQUIS 2.5 MG PO (10:03)
[2024-09-12] MEDS: THERAGRAN 1 TABLET PO (10:03)
[2024-09-12] MEDS: DESENEX/MITRAZOL/ZEASORB 1 APPLIC TOPICAL ×2 (10:04→21:39)
[2024-09-12] MEDS: LASIX 40 MG IV (10:04)
--- NOTE | 2024-09-12 10:33 | CM ---
CM spoke with Laverne from [facility] and she is reviewing case and will update CM about bed availability. CM will continue to follow for discharge planning needs.
Plan; SNF
[2024-09-12 11:00] VITALS: BP 114/76
[2024-09-12] MEDS: SILVADENE 1 APPLIC TOPICAL (13:18)
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
--- NOTE | 2024-09-12 14:55 | W.PN.NEPH.PH ---
Today's Communication / Plan
-
continue diuretics no changes made
Assessment/Plan
-
Impression:
DEVON
Decompensated acute congestive heart failure
History of interstitial lung disease
Left 11th rib fracture following acute trauma to bilateral lower extremities
New onset atrial flutter
History of mixed hyperlipidemia
History of psoriasis
History of diabetes
History cataract
History depression
History of low SaO2
History of presumed COPD
Hypotension
Diffuse body edema including scrotal edema
3.4 cm abdominal aortic aneurysm
3.8 cm right common iliac artery aneurysm
Obesity
Plan:
DEVON:
-Likely prerenal he mediated due to hypotensive episode on 07/07/2024 and possibly due to initial contrast injury from CT on 09/03/2024
-He may now have a component of ischemic ATN
- decreased urine output
-
-Urinalysis NOT consistent with GN process, no albumin
-Currently hemodynamically stable
-Zosyn is renally dosed for GFR less than 20
Creatinine and continues to increase as though no acute need for dialysis at this time
Lasix restarted
Potassium mildly elevated the setting of moderate hyperglycemia and acute kidney injury=Ordered a lower potassium diet.
A long discussion with the family about potential for dialysis although with the multiple comorbidities that likely not an option At his advanced late age
will discuss further going forward but I would recommend hospice care if we do go that direction
Creatinine appears to be plateauing currently at 5.5
no changes made today will continue to monitor
-
-
Date of Service: September 12, 2024
CC / HPI / ROS
-
Chief Complaint:
Acute kidney injury
History of Present Illness:
acute kidney injury status post bradycardia and hypotension.
worsening renal function though hemodynamically stable
Review of Systems: .
No chest pain shortness of breath nausea vomiting
Labs
-
Labs:
WBC 8.9 10^3/uL (4.8-10.8) 09/12/24 06:33
RBC 3.94 10^6/uL (4.70-6.10) L 09/12/24 06:33
Hgb 12.6 g/dL (13.0-18.0) L 09/12/24 06:33
Hct 38.8 % (39.0-52.0) L 09/12/24 06:33
Plt Count 251 10^3/uL (130-400) 09/12/24 06:33
Sodium 135 mmol/L (135-145) 09/12/24 06:33
Potassium 4.9 mmol/L (3.5-5.1) 09/12/24 06:33
Chloride 93 mmol/L (98-107) L 09/12/24 06:33
Carbon Dioxide 27 mmol/L (22-30) 09/12/24 06:33
BUN 101 mg/dl (9-20) H* 09/12/24 06:33
Creatinine 5.5 mg/dL (0.7-1.3) H* 09/12/24 06:33
eGFR 9.59 09/12/24 06:33
Glucose 265 mg/dl (70-99) H 09/12/24 06:33
Calcium 7.9 mg/dl (8.4-10.2) L 09/12/24 06:33
Mae-W-Speexofrieb Pept 77186 pg/ml 09/12/24 06:33
Albumin 3.6 g/dl (3.5-5.0) 09/12/24 06:33
Physical Exam
-
Vital Signs:
Vital Signs
Temp Pulse Resp BP Pulse Ox
98.4 F 75 24 112/67 92
09/12/24 07:30 09/12/24 10:02 09/12/24 07:30 09/12/24 10:02 01/19/25 07:30
Respiratory:: Bilateral: Coarse
Lung Excursion:: Normal
Abdomen:: Soft
Bowel Sounds:: Normal
Extremity Edema:: +1: Bilateral:
[2024-09-12 16:52] VITALS: BP 125/90
[2024-09-12] MEDS: LIPITOR 20 MG PO (17:57)
[2024-09-12 20:04] VITALS: BP 110/74
[2024-09-12] MEDS: ZOLOFT 150 MG PO (21:41)
[2024-09-12] MEDS: ELIQUIS PO (22:12)
--- NOTE | 2024-09-12 22:12 | PTCARENOTE ---
Reached out to House Provider, Fatoumata Nelson, asking if we should hold his evening eliquis. Per day shift, pt experienced penile bleeding with blood clots. Some blood was noted on the pad when I went in. House provider advised to bladder scan and to
hold evening eliquis. Bladder scanned at 282mL. Will continue to monitor.
[2024-09-12 22:35] VITALS: BP 115/78
[2024-09-13] VITALS (7 sets, daily range): BP systolic 105–126; BP diastolic 67–89; BMI 37.4
[2024-09-13] MEDS: DECADRON 4 MG IV ×3 (05:37→21:19)
[2024-09-13 08:13] LABS: Hematocrit 37.1 % (39.0-52.0); Hemoglobin 12.3 g/dL (13.0-18.0); Mean Corp Hgb Conc. 33.2 g/dL (33.0-37.0); Mean Corpuscular Hgb 31.5 pg (27.0-31.0); Mean Corpuscular Volume 94.9 fL (80.0-94.0); Mean Platelet Volume 9.7 fL (7.4-10.4); Platelet Count 254 10^3/uL (130-400); Red Blood Cell Count 3.91 10^6/uL (4.70-6.10); Red Cell Dist. Width 17.5 % (11.5-14.5); White Blood Cell Count 10.4 10^3/uL (4.8-10.8)
[2024-09-13] MEDS: ROXICODONE 5 MG PO (08:15)
[2024-09-13] MEDS: LASIX 40 MG IV (08:16)
[2024-09-13] MEDS: TOPROL XL 12.5 MG PO (08:16)
[2024-09-13] MEDS: THERAGRAN 1 TABLET PO (08:16)
[2024-09-13] MEDS: SILVADENE 1 APPLIC TOPICAL (08:18)
[2024-09-13] MEDS: DESENEX/MITRAZOL/ZEASORB 1 APPLIC TOPICAL ×2 (08:18→21:37)
[2024-09-13 08:52] LABS: Blood Urea Nitrogen 110 mg/dl (9-20); Calcium 8.1 mg/dl (8.4-10.2); Carbon Dioxide 23 mmol/L (22-30); Chloride 93 mmol/L (98-107); Estimated Creatinine Clearance 13 ml/min; Glucose 273 mg/dl (70-99); Potassium 4.6 mmol/L (3.5-5.1); Sodium 134 mmol/L (135-145); eGFR 10.26
--- NOTE | 2024-09-13 13:57 | W.PN.NEPH.PH ---
Today's Communication / Plan
-
Follow BMP
Assessment/Plan
-
Impression:
DEVON
Decompensated acute congestive heart failure
interstitial lung disease
Left 11th rib fracture following acute trauma to bilateral lower extremities
New onset atrial flutter
Diabetes mellitus type 2
COPD
Hypotension
Diffuse body edema including scrotal edema
3.4 cm abdominal aortic aneurysm
3.8 cm right common iliac artery aneurysm
Plan:
Follow BMP
Continue IV Lasix at this time
He still appears to be volume overloaded.
He is not a candidate for dialysis
Palliative care or hospice would be appropriate
-
-
Date of Service: September 13, 2024
CC / HPI / ROS
-
Chief Complaint:
Acute kidney injury
History of Present Illness:
DEVON/creatinine slightly better at 5.2
BUN higher at 110
Sodium low at 134
Weight stable on IV Lasix for decompensated heart failure
BP stable
Review of Systems: .
No chest pain shortness of breath
Disoriented
Labs
-
Labs:
WBC 10.4 10^3/uL (4.8-10.8) 09/13/24 07:54
RBC 3.91 10^6/uL (4.70-6.10) L 09/13/24 07:54
Hgb 12.3 g/dL (13.0-18.0) L 09/13/24 07:54
Hct 37.1 % (39.0-52.0) L 09/13/24 07:54
Plt Count 254 10^3/uL (130-400) 09/13/24 07:54
Sodium 134 mmol/L (135-145) L 09/13/24 07:54
Potassium 4.6 mmol/L (3.5-5.1) 09/13/24 07:54
Chloride 93 mmol/L (98-107) L 09/13/24 07:54
Carbon Dioxide 23 mmol/L (22-30) 09/13/24 07:54
BUN 110 mg/dl (9-20) H* 09/13/24 07:54
Creatinine 5.2 mg/dL (0.7-1.3) H* 09/13/24 07:54
eGFR 10.26 09/13/24 07:54
Glucose 273 mg/dl (70-99) H 09/13/24 07:54
Calcium 8.1 mg/dl (8.4-10.2) L 09/13/24 07:54
Arc-L-Degssvyvdkl Pept 94896 pg/ml 09/12/24 06:33
Albumin 3.6 g/dl (3.5-5.0) 09/12/24 06:33
Physical Exam
-
Vital Signs:
Vital Signs
Temp Pulse Resp BP Pulse Ox
97.3 F 108 22 114/79 98
09/13/24 11:20 09/13/24 11:20 09/13/24 11:20 09/13/24 11:20 09/13/24 11:20
Cardiovascular:: Regular rate and rhythm
Respiratory:: Bilateral: Coarse
Lung Excursion:: Normal
Abdomen:: Nontender and Soft
Bowel Sounds:: Normal
Extremity Edema:: +3: Bilateral:
[2024-09-13] MEDS: ROXICODONE 2.5 MG PO ×2 (15:04→21:21)
--- NOTE | 2024-09-13 15:14 | CM ---
CM and physician called to patient niece second POA and updated her about the options again. Daughter stating that patient does not want hospice at this time and wants to go to SNF when medically clear for rehab. CM updated her that [facility], [facility]
and [facility] had agreed to accept patient but patient was not medically stable for discharge at this time. CM will continue to follow for discharge planning needs.
Plan; SNF vs hospice.
[2024-09-13] MEDS: LIPITOR 20 MG PO (16:53)
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
[2024-09-13] MEDS: ZOLOFT 150 MG PO (21:19)
[2024-09-14] VITALS (7 sets, daily range): BP systolic 102–135; BP diastolic 67–94; PULSE 107; O2SAT 97; BMI 37.4
[2024-09-14] MEDS: TYLENOL 650 MG PO ×3 (02:25→17:17)
[2024-09-14] MEDS: ROXICODONE 2.5 MG PO ×2 (05:19→21:02)
[2024-09-14] MEDS: DECADRON 4 MG IV ×3 (05:24→21:01)
[2024-09-14] MEDS: LASIX 40 MG IV (07:46)
[2024-09-14] MEDS: ELIQUIS 2.5 MG PO ×2 (07:48→19:10)
[2024-09-14] MEDS: TOPROL XL 12.5 MG PO (07:48)
[2024-09-14] MEDS: THERAGRAN 1 TABLET PO (07:48)
[2024-09-14] MEDS: DESENEX/MITRAZOL/ZEASORB 1 APPLIC TOPICAL ×2 (07:49→19:11)
[2024-09-14] MEDS: SILVADENE 1 APPLIC TOPICAL (07:49)
[2024-09-14 08:56] LABS: % Basophils 0.1 % (0-2); % Eosinophils 0.2 % (0-6); % Immature Granulocytes 0.4 % (0-0.5); % Lymphocytes 2.6 % (20.5-51.1); % Monocytes 4.8 % (1.7-9.3); % Neutrophils 91.9 % (42.2-75.2); Absolute Lymphocytes 0.3 10^3/uL (1.2-3.4); Absolute Monocytes 0.5 10^3/uL (0.1-0.6); Absolute Neutrophils 9.8 10^3/uL (1.4-6.5); Hematocrit 37.5 % (39.0-52.0); Mean Corpuscular Hgb 31.9 pg (27.0-31.0); Mean Corpuscular Volume 99.7 fL (80.0-94.0); Nucleated Red Blood Cells % 0 % (-); Platelet Count 245 10^3/uL (130-400); Red Blood Cell Count 3.76 10^6/uL (4.70-6.10); Red Cell Dist. Width 17.6 % (11.5-14.5); White Blood Cell Count 10.7 10^3/uL (4.8-10.8)
[2024-09-14 10:24] LABS: Blood Urea Nitrogen 113 mg/dl (9-20); Calcium 7.7 mg/dl (8.4-10.2); Carbon Dioxide 28 mmol/L (22-30); Chloride 93 mmol/L (98-107); Estimated Creatinine Clearance 15 ml/min; Glucose 308 mg/dl (70-99); Potassium 4.9 mmol/L (3.5-5.1); Sodium 134 mmol/L (135-145); eGFR 11.59
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
--- NOTE | 2024-09-14 15:07 | PTCARENOTE ---
Pt going down for ultrasound of his bladder due to blood clots showing up in urine. Yesterday when I had this pt, he did not have any clots in urine. When speaking with other nurses they had said that it had susan going on since the weekend. MD aware
and ultrasound happening soon.
--- NOTE | 2024-09-14 16:00 | PTOTSP ---
Speech Language Pathology
Pt seen for dysphagia tx. Per previous notes, pt preferred to stay on minced/moist solids and thin liquids. Discussed this with pt who did not recall saying this prior, but stated he does not mind the current diet. Reviewed results/recommendations
from E completed this admission with difficulty only noted with consecutive sips of liquids. Pt verbalized understanding. Pt edentulous. Stated he has dentures that are not in the hospital, but he does not typically wear them. Seen with P.O.
trials of thin liquids via cup/straw and regular solids. Prolonged mastication of regular solids noted secondary to edentulous status, not a true oral dysphagia. No overt signs of aspiration noted.
Recommend:
(1) Upgrade to IDDSI Level 6 (soft/bite-sized) and thin liquids. This is likely to be least restrictive diet for pt
(2) Aspiration precautions: Upright positioning, small single sips/bites, slow rate, breaks for breathing, supervision during meals
(3) Meds whole in puree
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
--- NOTE | 2024-09-14 16:46 | CM ---
Chart reviewed and director case spoke with POA for patient Ludivina [phone] and she had multiple questions she is a nurse and reviewed patient notes today along with progress, she reviewed patient's labs and has multiple questions for medical team,
plan is for skilled placement and referrals sent to [facility], [facility] and [facility].
Plan; To follow with patient progress.
[2024-09-14 17:10] LABS: Urine Albumin Trace (Neg - Trace); Urine Bilirubin Negative (Negative); Urine Character Slightly Cloudy (Clear); Urine Color Amber; Urine Glucose 1+ (Negative); Urine Ketone Negative (Negative); Urine Leukocyte Negative (Negative); Urine Nitrite Negative (Negative); Urine Occult Blood 4+ (Negative); Urine Specific Gravity 1.015 (<1.030); Urine Urobilinogen Negative (Neg - 1+)
[2024-09-14] MEDS: LIPITOR 20 MG PO (17:17)
[2024-09-14 17:21] LABS: Urine Bacteria Few (Negative); Urine Squamous Cell 0-2 /LPF (Few)
[2024-09-14 17:23] LABS: Urine Red Blood Cell 70-80 /HPF (0-2)
[2024-09-14] MEDS: ZOLOFT 150 MG PO (21:03)
[2024-09-15] MEDS: TYLENOL 650 MG PO ×3 (00:31→23:36)
[2024-09-15] MEDS: ROXICODONE 2.5 MG PO ×4 (02:57→23:31)
[2024-09-15 05:14] VITALS: BMI 37.1
[2024-09-15] MEDS: SILVADENE 1 APPLIC TOPICAL (05:16)
[2024-09-15 07:27] VITALS: BP 135/93
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
[2024-09-15 07:56] LABS: Hematocrit 36.9 % (39.0-52.0); Hemoglobin 12.3 g/dL (13.0-18.0); Mean Corp Hgb Conc. 33.3 g/dL (33.0-37.0); Mean Corpuscular Hgb 32.4 pg (27.0-31.0); Mean Corpuscular Volume 97.1 fL (80.0-94.0); Mean Platelet Volume 9.9 fL (7.4-10.4); Platelet Count 237 10^3/uL (130-400); Red Cell Dist. Width 17.2 % (11.5-14.5); White Blood Cell Count 12.4 10^3/uL (4.8-10.8)
[2024-09-15 08:29] LABS: Blood Urea Nitrogen 111 mg/dl (9-20); Calcium 8.1 mg/dl (8.4-10.2); Carbon Dioxide 31 mmol/L (22-30); Chloride 91 mmol/L (98-107); Estimated Creatinine Clearance 16 ml/min; Glucose 293 mg/dl (70-99); Potassium 4.1 mmol/L (3.5-5.1); Sodium 135 mmol/L (135-145); eGFR 13.26
[2024-09-15] MEDS: ELIQUIS 2.5 MG PO ×2 (08:38→19:36)
[2024-09-15] MEDS: THERAGRAN 1 TABLET PO (08:38)
[2024-09-15] MEDS: TOPROL XL 12.5 MG PO (08:38)
[2024-09-15] MEDS: LASIX 40 MG IV (08:39)
[2024-09-15] MEDS: DECADRON 4 MG IV ×2 (08:40→21:31)
[2024-09-15] MEDS: DESENEX/MITRAZOL/ZEASORB 1 APPLIC TOPICAL ×2 (09:09→19:38)
--- NOTE | 2024-09-15 14:06 | CM ---
Addendum entered by Laverne Morel 09/15/24 15:44:
manager title spoke with Fernanda and admissions at [facility], admissions at [facility] and [facility] and they have offered to discuss jail facilities directly with family.
Plan; Waiting on final discussion with physician and family, meanwhile admissions from [facility], [place] and [facility] have offered to reach out to family to discuss a bed for patient.
Addendum entered by Laverne Morel 09/15/24 14:24:
Per admissions at [facility] today, no beds at [facility].
Original Note:
Per patient's physician patient has been cleared for discharge, rn case management reached out to [facility] for patient Ludivina [phone] and spoke with admissions at [facility].
Plan; Skilled placement waiting for a call from [facility] and [facility] to confirm that they have a bed for patient today, no Auth required.
[2024-09-15 15:02] VITALS: BP 101/73
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
[2024-09-15] MEDS: LASIX IV (16:55)
[2024-09-15] MEDS: LIPITOR 20 MG PO (17:06)
[2024-09-15] MEDS: ZOLOFT 150 MG PO (21:31)
[2024-09-15 23:00] VITALS: BP 143/92
[2024-09-16] MEDS: ROXICODONE 5 MG PO (03:52)
[2024-09-16 06:00] VITALS: BMI 36.7
[2024-09-16 06:01] VITALS: BP 138/95
[2024-09-16] MEDS: TYLENOL 650 MG PO (06:19)
[2024-09-16] MEDS: ROXICODONE 2.5 MG PO (06:20)
[2024-09-16] MEDS: SILVADENE 1 APPLIC TOPICAL (06:47)
[2024-09-16 07:00] VITALS: BP 135/98
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
[2024-09-16 08:16] LABS: Hematocrit 36.4 % (39.0-52.0); Hemoglobin 11.9 g/dL (13.0-18.0); Mean Corp Hgb Conc. 32.7 g/dL (33.0-37.0); Mean Corpuscular Hgb 32.3 pg (27.0-31.0); Mean Corpuscular Volume 98.9 fL (80.0-94.0); Mean Platelet Volume 10.3 fL (7.4-10.4); Platelet Count 214 10^3/uL (130-400); Red Blood Cell Count 3.68 10^6/uL (4.70-6.10); Red Cell Dist. Width 17.1 % (11.5-14.5); White Blood Cell Count 14.1 10^3/uL (4.8-10.8)
[2024-09-16 08:38] LABS: Blood Urea Nitrogen 102 mg/dl (9-20); Calcium 8.1 mg/dl (8.4-10.2); Carbon Dioxide 36 mmol/L (22-30); Chloride 90 mmol/L (98-107); Estimated Creatinine Clearance 19 ml/min; Glucose 334 mg/dl (70-99); Potassium 4.1 mmol/L (3.5-5.1); Sodium 135 mmol/L (135-145)
[2024-09-16] MEDS: TOPROL XL 12.5 MG PO (09:39)
[2024-09-16] MEDS: DESENEX/MITRAZOL/ZEASORB 1 APPLIC TOPICAL (09:39)
[2024-09-16] MEDS: ELIQUIS 2.5 MG PO (09:40)
[2024-09-16] MEDS: THERAGRAN 1 TABLET PO (09:41)
[2024-09-16] MEDS: DECADRON 4 MG IV (09:41)
[2024-09-16] MEDS: LASIX 80 MG IV ×2 (09:43→15:53)
--- NOTE | 2024-09-16 10:53 | PN.CDI ---
CDI
- -
CDI:
Physician Documentation Request
Admit Date: 09/03/24 18:46
Dear Doctor John,
Clinical Indicators:
The diagnosis of ischemic ATN was documented on 09/12, but is not consistently noted in subsequent documentation.
09/12 Nephrology PN, 'DEVON:-Likely prerenal he mediated due to hypotensive episode on 07/07/2024 and possibly due to initial contrast injury from CT on 09/03/2024-He may now have a component of ischemic ATN'
CR/GFR trend:
09/08/24 09/10/24 09/12/24
06:27 07:11 06:33
Creatinine 4.4 H* 5.4 H* 5.5 H*
eGFR 12.54 9.81 9.59
09/14/24 09/15/24 09/16/24
10:00 07:32 07:02
Creatinine 4.7 H* 4.2 H* 3.5 H
eGFR 11.59 13.26 16.50
Please clarify the following:
Ischemic ATN is still a likely, suspected, probable diagnosis
Ischemic ATN is ruled out
Other, please specify
Use of terms such as suspected, likely, concern for, or probable (associated with a specific diagnosis that is being evaluated, monitored, or treated as if it exists) are acceptable and can be coded in the inpatient setting, when documented at the
time of discharge.
Thank you,
Shelley Barker RN BSN
CDI Specialist
available via tiger text
Please use your independent medical judgment in providing your response.
[2024-09-16 11:24] VITALS: BP 139/70; PULSE 113; O2SAT 96
[2024-09-16 15:14] VITALS: BP 114/84
--- NOTE | 2024-09-16 15:15 | W.PN.NEPH.PH ---
Addendum entered and electronically signed by Davy Lopez DO 09/17/24 14:32:
DEVON secondary to prerenal and cardiorenal syndrome
Original Note:
Today's Communication / Plan
-
continue diuretics would be okay for discharge from a renal standpoint PO Lasix a
Assessment/Plan
-
Impression:
DEVON
Decompensated acute congestive heart failure
interstitial lung disease
Left 11th rib fracture following acute trauma to bilateral lower extremities
New onset atrial flutter
Diabetes mellitus type 2
COPD
Hypotension
Diffuse body edema including scrotal edema
3.4 cm abdominal aortic aneurysm
3.8 cm right common iliac artery aneurysm
Plan:
Follow BMP
Continue IV Lasix at this time, he is still severely overloaded
He is not a candidate for dialysis
Palliative care or hospice would be appropriate
Increase Lasix 80 mg twice a day
if patient discharge or recommend 80 mg of PO Lasix
-
-
Date of Service: September 16, 2024
CC / HPI / ROS
-
Chief Complaint:
Acute kidney injury
History of Present Illness:
DEVON/creatinine better at 4.7 � 42
Weight stable on IV Lasix for decompensated heart failure
BP stable
Review of Systems: .
No chest pain shortness of breath
Labs
-
Labs:
WBC 14.1 10^3/uL (4.8-10.8) H 09/16/24 07:02
RBC 3.68 10^6/uL (4.70-6.10) L 09/16/24 07:02
Hgb 11.9 g/dL (13.0-18.0) L 09/16/24 07:02
Hct 36.4 % (39.0-52.0) L 09/16/24 07:02
Plt Count 214 10^3/uL (130-400) 09/16/24 07:02
Sodium 135 mmol/L (135-145) 09/16/24 07:02
Potassium 4.1 mmol/L (3.5-5.1) 09/16/24 07:02
Chloride 90 mmol/L (98-107) L 09/16/24 07:02
Carbon Dioxide 36 mmol/L (22-30) H 09/16/24 07:02
BUN 102 mg/dl (9-20) H* 09/16/24 07:02
Creatinine 3.5 mg/dL (0.7-1.3) H 09/16/24 07:02
eGFR 16.50 09/16/24 07:02
Glucose 334 mg/dl (70-99) H 09/16/24 07:02
Calcium 8.1 mg/dl (8.4-10.2) L 09/16/24 07:02
Ynk-E-Hdmtqmcqhxf Pept 27543 pg/ml 09/12/24 06:33
Albumin 3.6 g/dl (3.5-5.0) 09/12/24 06:33
Physical Exam
-
Vital Signs:
Vital Signs
Temp Pulse Resp BP Pulse Ox
97.5 F 101 17 114/84 96
09/16/24 15:14 09/16/24 15:14 09/16/24 15:14 09/16/24 15:14 09/16/24 15:14
Cardiovascular:: Regular rate and rhythm
Respiratory:: Bilateral: Coarse and Bilateral: Rales
Lung Excursion:: Normal
Abdomen:: Nontender and Soft
Bowel Sounds:: Normal
Extremity Edema:: +3: Bilateral:
Other Findings::
anasarca
--- NOTE | 2024-09-16 15:52 | CM ---
CM spoke with Fernanda Grace earlier today to discuss transfer to [facility] today at 6PM via ambulance. IMM reviewed verbally with Fernanda and verbal consent provided.
CM requested an extra copy of the discharge instructions to be sent with patient for family to review.
Plan: Discharge to [facility] today at 6PM
Report: [phone]
[2024-09-16] MEDS: FLUAD (65 yr+) 2024-2025 FORMULA 0.5 ML IM (15:54)
[2024-09-16] MEDS: LIPITOR 20 MG PO (17:10)
== END 2024-09-16 18:59 | DRG 871 ==
LOC: 4 WEST ACU 18:46
PROVIDERS: Clinical Nurse Specialist Family Health; Internal Medicine; Physician Assistant; Specialist; ADMITTING PHYSICIAN Hospitalist; ATTENDING PHYSICIAN Internal Medicine; CONSULT PHYSICIAN Internal Medicine Cardiovascular Disease; CONSULT PHYSICIAN Specialist; EMERGENCY PHYSICIAN Emergency Medicine; FAMILY PHYSICIAN Physician Assistant
PROC: 3E0234Z Introduction of Serum, Toxoid and Vaccine into Muscle, Percutaneous Approach (ICD-10-PCS; 2024-09-03)
DX: A41.9 Sepsis, unspecified organism (principal); I50.33 Acute on chronic diastolic (congestive) heart failure; S22.32XA Fracture of one rib, left side, initial encounter for closed fracture; I48.92 Unspecified atrial flutter; J84.9 Interstitial pulmonary disease, unspecified; N17.9 Acute kidney failure, unspecified; R18.8 Other ascites; Z51.5 Encounter for palliative care; Z66 Do not resuscitate; I95.9 Hypotension, unspecified; J44.9 Chronic obstructive pulmonary disease, unspecified; S90.812A Abrasion, left foot, initial encounter; S90.811A Abrasion, right foot, initial encounter; N18.32 Chronic kidney disease, stage 3b; E78.2 Mixed hyperlipidemia; E66.812 Obesity, class 2; F41.9 Anxiety disorder, unspecified; F32.A Depression, unspecified; R00.1 Bradycardia, unspecified; R40.4 Transient alteration of awareness; R31.9 Hematuria, unspecified; R06.89 Other abnormalities of breathing; R09.02 Hypoxemia; I72.3 Aneurysm of iliac artery; I71.43 Infrarenal abdominal aortic aneurysm, without rupture; V87.8XXA Person injured in other specified noncollision transport accidents involving motor vehicle (traffic), initial encounter; Z11.52 Encounter for screening for COVID-19; Z68.37 Body mass index [BMI] 37.0-37.9, adult; Z87.891 Personal history of nicotine dependence; Z79.899 Other long term (current) drug therapy; Z79.82 Long term (current) use of aspirin; Z23 Encounter for immunization
CPT/HCPCS: 71045; 71046; 71260; 74177; 74230; 76770; 80048; 80053; 80061; 81003; 81015; 82550; 82570; 82962; 83605; 83735; 83880; 84145; 84156; 84300; 85025; 85027; 87040; 87502; 87811; 90662; 90715; 92526; 92610; 92611; 93005; 93306; 93970; 94640; 96365; 96375; 97163; 97167; 97530; 99285; G0008; Q9967